=== PATIENT | female | born 1950 | race Caucasian/White ===

== ENCOUNTER → 2024-03-31 11:01 | Outpatient (REF) | payer MEDICARE, SELFPAY | LOC: WDC 11:01 | PROVIDERS: ATTENDING PHYSICIAN Family Medicine | DX: Z12.31 Encounter for screening mammogram for malignant neoplasm of breast (principal) | CPT/HCPCS: 77063; 77067 ==

== ENCOUNTER 2024-10-22 05:20 | Emergency (ER) | payer MEDICARE, SELFPAY ==
[2024-10-22 05:33] VITALS: BP 163/90
--- NOTE | 2024-10-22 05:58 | ED.GENMED ---
History of Present Illness
General
Chief Complaint: Musculo-Skeletal Complaint
Time Seen by Provider: 10/22/24 05:58
History of Present Illness
History of Present Illness:
PAST MEDICAL HISTORY AND REVIEW OF OLD RECORDS
- The patient has history of renal cancer, has been hyponatremic, and has high blood pressure. I reviewed records, the patient had a colonoscopy 2021.
Note:
CHIEF COMPLAINT(S)
Pain in the left leg.
HISTORY OF PRESENT ILLNESS
The patient is a 74-year-old female presenting with pain in her left leg. The pain is described as both sudden and severe in onset, occurring intermittently over the past few weeks. The patient reports that the pain extends all the way down to the
toes on the left side. There is no associated trauma or other symptoms in different areas. The patient denies any pain in the right leg. When the left leg is manipulated, she experiences discomfort. There is no history of taking narcotics, and the
patient does not express an immediate desire for narcotic pain relief. She reports that the severity of pain is occasionally significant. The patient takes several other medications including prednisone and methotrexate, but the exact reasons for
these are not specified. No blood-thinning medications were reported.
REVIEW OF SYSTEMS
- Musculoskeletal: Reports sudden and severe pain in the left leg extending to the toes; no history of trauma.
- Cardiovascular: Pulses are palpable in the leg; no indication of blood flow issue noted.
- Medication-related: Queries about severity needing narcotics, none taken or requested.
PHYSICAL EXAM
General: Alert, moderate distress noted related to pain in the left lower extremity
Skin: Warm, dry.
Head: Normocephalic, atraumatic.
Neck: Supple, trachea midline.
Eye, Ears, Nose, Mouth, and Throat: Oral mucosa moist.
Cardiovascular: Normal peripheral perfusion, No edema. She has bounding DP and PT pulses bilaterally. Regular rhythm.
Respiratory: Respirations are non-labored.
Gastrointestinal: Abdomen nondistended.
Back: Normal range of motion, Normal alignment.
Musculoskeletal: Somewhat decreased active range of motion of the left lower extremity due to pain, deformities noted to both toes, ulnar deviation noted at the fingers consistent with rheumatoid arthritis there may be some mild diffuse tenderness
to palpation of the left lower extremity
Neurological: Alert and oriented to person, place, time, and situation, No focal neurological deficit observed.
Psychiatric: Cooperative, appropriate mood & affect.
PLAN
The plan includes ordering blood work and x-rays to further investigate the cause of the left leg pain. Additionally, Toradol, a non-narcotic anti-inflammatory medication, is to be administered to manage pain.
DIFFERENTIAL DIAGNOSIS
The Differential Diagnosis includes, in no particular order and is not limited to:
1. Deep vein thrombosis
2. Peripheral arterial disease
3. Musculoskeletal strain
4. Neuropathy
5. Vasculitis
6. Arthritis
7. Lumbar radiculopathy
8. Compartment syndrome
9. Soft tissue infection
10. Bone pathology (e.g., fracture, tumor)
RADIOLOGY
- Ultrasound imaging shows no evidence of DVT
LABS
- White count, hemoglobin, CK, chemistries unremarkable
UPDATE
- The patient was given Toradol as well as IV fluids.
SUMMARY OF ENCOUNTER
The patient is a 74-year-old female who presented with sudden and severe left leg pain extending to the toes. Upon evaluation, x-rays of the knee indicated diminished joint space, suggesting possible osteoarthritis. Laboratory workup was performed,
and all labs, including inflammatory markers, white blood cell count, and creatine kinase, returned normal results, ruling out infection or significant inflammatory conditions. Physical examination did not support sciatica, with normal blood flow
observed in the affected leg. The patient has a history of kidney cancer and rheumatoid arthritis, for which she sees a sap business intelligence consultant. Emergency treatment included administration of ketorolac (Toradol) for pain management. Considering the patients
ongoing severe symptoms, a decision was made to prescribe tramadol (Ultram) for additional pain relief.
DISPOSITION
Discharge.
ASSESSMENT
Severe left leg pain, likely due to osteoarthritic changes noted in the knee joint.
EMERGENCY TREATMENTS ADMINISTERED
A dose of ketorolac (Toradol) was provided for pain management.
PLAN
The patient was referred to an software product specialist for further evaluation of knee joint issues. She was advised to try kbib-ufj-tilpvjl ibuprofen (Motrin) intermittently for additional anti-inflammatory effects. Additionally, a prescription for
tramadol (Ultram) was sent to her pharmacy for short-term pain management.
INDEPENDENT REVIEW OF LABS AND INTERPRETATION OF TESTS
- My independent review of lab results indicates normal inflammatory markers, white blood cell count, and creatine kinase levels, showing no signs of infection or pronounced rheumatoid arthritis activity.
- My independent interpretation of x-rays shows diminished joint space in the knee, indicative of osteoarthritic changes, but no signs of metastatic disease or other concerning pathology.
PATIENT EDUCATION AND COUNSELING
The patient was educated about the potential knee osteoarthritis and advised on possible non-prescription anti-inflammatory options like ibuprofen. The need for a follow-up with an software product specialist was discussed.
FOLLOW-UP INSTRUCTIONS
The patient was advised to follow up with an orthopedic doctor for further evaluation and management of knee joint issues.
MEDICATION RECONCILIATION
A prescription for tramadol (Ultram) was sent to the patient�s pharmacy for pain management. The patient was also advised to use anyg-lop-oicyrcu ibuprofen (Motrin) as needed.
MEDICAL DECISION MAKING
- Number and Complexity of Problems Addressed: Chronic conditions affecting care include rheumatoid arthritis and past kidney cancer. Differential diagnosis considered: osteoarthritis, musculoskeletal strain, neuropathy, lumbar radiculopathy, and
other causes of leg pain.
- Data:
- Category 1: My independent interpretation of the x-rays identified diminished joint space suggestive of osteoarthritis.
- Risk:
The decision to discharge was made, as imaging and lab work were reassuring, showing no acute life-threatening processes. The patients symptoms are manageable with prescribed medications, and she is considered reliable for follow-up.
DIAGNOSIS
- Osteoarthritis of knee, unspecified, M17.9
- Pain in left leg, M79.662
Past History
Past History
ED Past Medical History: Cancer and HTN
ED Past Surgical History: Gynecological and Urological
Social History
Tobacco: Non-smoker
Alcohol: None
Drug: None
Personal:
Living: with family
Phy Exam
Physical Exam
Physical Exam:
See HPI
Course
Orders/Labs/Results
Orders:
Orders
10/22/24 06:04
CR Femur - Left Min 2 Vw Urgent
Comment:
Reason For Exam: pain
CR Leg Tibia/fibula Left 2 Vw Urgent
Comment:
Reason For Exam: pain
US Legs, Left [US Periph Venous LOWER Ext LT] Urgent
Comment:
Reason For Exam: severe pain
10/22/24 06:06
Ketorolac [Toradol] 15 mg IV NOW STA
10/22/24 06:08
0.9% Sodium Chloride 1000 ml [Nss] 1,000 ml IV BOLUS
10/22/24 06:12
CRP [C-Reactive Protein] Urgent
Complete Blood Count/With Diff Urgent
Comprehensive Metabolic Panel Urgent
Total CK [Creatine Phosphokinase] Urgent
Abnormal Lab Results
10/22/24
06:12
RBC 4.14 L 10^6/uL
(4.20-5.40)
Hct 36.7 L %
(37.0-47.0)
MCHC 32.7 L g/dL
(33.0-37.0)
RDW 14.6 H %
(11.5-14.5)
Abs Immat Gran (auto) 0.1 H 10^3/uL
(0-0.05)
Immature Gran % 0.6 H %
(0-0.5)
Sodium 134 L mmol/L
(135-145)
BUN 18 H mg/dl
(7-17)
Creatinine 0.4 L mg/dL
(0.6-1.0)
10/22/24 06:12
10/22/24 06:12
Vital Signs
Initial and Last Documented VS:
Initial Vital Signs
Temp Pulse Resp BP Pulse Ox
36.4 C 114 24 163/90 94
10/22/24 05:10/22/24 05:10/22/24 05:10/22/24 05:10/22/24 05:33
Last Documented Vital Signs
Temp Pulse Resp BP Pulse Ox
36.4 C 114 24 163/90 94
10/22/24 05:10/22/24 05:10/22/24 05:10/22/24 05:10/22/24 06:00
*Pulse Oximetry
SaO2: 94
Oxygen Mode of Delivery: Room air
Patient hypoxic: no
*Critical Care Note
Total Time (30-74mins, 75-104mins- exclusive of procedures): Not Applicable
ED Attending Note
-
Portions of this chart may have been created with voice recognition software.� Occasional wrong word or��sound alike� substitutions may have occurred due to the inherent limitations of voice recognition software.
Discharge Plan
Departure
Patient Disposition: Home (Routine Discharge)
Date of Disposition: 10/22/24
Time of Disposition: 07:20
Patient with high blood pressure during this ER visit?: Yes
Discharge Problem:
Acute leg pain
Prescriptions:
New
tramadol 50 mg tablet
50 - 100 mg PO Q12H PRN (Reason: Pain) Qty: 14 0RF
Referrals:
Aston Ayala MD [Active, Orthopedics]
PRIVATE,PHYSICIAN [Active, Internal Medicine]
Activity Restrictions/Additional Instructions:
The cause of your symptoms is unclear. Your white blood cell count, hemoglobin, inflammatory marker, and CK level (muscle breakdown number) are all normal. The ultrasound shows no sign of blood clot. I could easily feel strong arterial flow into
your foot. You do have rather significant degenerative joint disease at the left knee. I recommend you follow-up in orthopedics as well such as Dr. Ayala. You could intermittently try frap-zyp-rdektsp Motrin (ibuprofen) as you seem to have some
improvement after Toradol today�these are both anti-inflammatory medicine (NSAIDs).
Interventions
Interventions:
*Risk Screen - Suicide Last Done: 10/22/24 05:27
*General Assessment Last Done: 10/22/24 05:27
*Neglect/Abuse Screening Last Done: 10/22/24 05:27
*ED- Fall Risk Assessment Last Done: 10/22/24 05:27
*ED COVID-19 Vaccine History Last Done: 10/22/24 05:27
ED-Musculoskeletal Assessment Last Done: 10/22/24 06:20
Discharge Date and Time
Print Language: CYMRO
[2024-10-22 06:11] VITALS: BMI 15.5
[2024-10-22] MEDS: NSS 1000 IV (06:17)
[2024-10-22] MEDS: TORADOL 15 MG IV (06:19)
--- NOTE | 2024-10-22 06:27 | EDRN ---
Pt reports sudden onset of pain L upper leg that radiates down to her toes yesterday afternoon. Pain started while 'I was just lying there.' No known injury. Unrelenting pain prompted this ED visit. Last tylenol around 6430-0294. No pain in R
leg.
[2024-10-22 06:29] LABS: Hematocrit 36.7 % (37.0-47.0); Hemoglobin 12.0 g/dL (12.0-16.0); Mean Corp Hgb Conc. 32.7 g/dL (33.0-37.0); Mean Corpuscular Volume 88.6 fL (81.0-99.0); Nucleated Red Blood Cells % 0 %; Platelet Count 382 10^3/uL (130-400); Red Cell Dist. Width 14.6 % (11.5-14.5)
[2024-10-22 06:41] LABS: ALT (SGPT) 12 U/L (0-35); AST (SGOT) 21 U/L (14-36); Albumin 4.3 g/dl (3.5-5.0); Alkaline Phosphatase 71 U/L (38-126); Blood Urea Nitrogen 18 mg/dl (7-17); Calcium 10.0 mg/dl (8.4-10.2); Carbon Dioxide 22 mmol/L (22-30); Chloride 106 mmol/L (98-107); Estimated Creatinine Clearance 55 ml/min; Glucose 97 mg/dl (70-99); Potassium 3.9 mmol/L (3.5-5.1); Sodium 134 mmol/L (135-145); Total Protein 6.7 g/dl (6.3-8.2); eGFR > 60.00
[2024-10-22 06:53] LABS: C-Reactive Protein < 5.00 mg/L (0.0-10.00)
[2024-10-22 08:03] VITALS: BP 154/97
== END 2024-10-22 08:11 | disposition home or self-care (01) ==
LOC: EMR 05:20
PROVIDERS: EMERGENCY PHYSICIAN Emergency Medicine; FAMILY PHYSICIAN Family Medicine
DX: M79.605 Pain in left leg (principal); I10 Essential (primary) hypertension; Z85.528 Personal history of other malignant neoplasm of kidney
CPT/HCPCS: 96374; 96361; 99284; 73552; 73590; 80053; 82550; 85025; 86140; 93971

== ENCOUNTER 2024-10-26 19:56 | Inpatient (IN) | payer MEDICARE, SELFPAY ==
[2024-10-26 15:36] VITALS: BP 141/81
[2024-10-26] MEDS: MORPHINE SULFATE 2 MG IV (17:23)
[2024-10-26 17:41] VITALS: BP 145/72
[2024-10-26 17:42] LABS: Hematocrit 33.4 % (37.0-47.0); Hemoglobin 11.6 g/dL (12.0-16.0); Mean Corp Hgb Conc. 34.7 g/dL (33.0-37.0); Mean Corpuscular Volume 84.3 fL (81.0-99.0); Nucleated Red Blood Cells % 0 %; Platelet Count 344 10^3/uL (130-400); Red Cell Dist. Width 14.5 % (11.5-14.5)
--- NOTE | 2024-10-26 17:58 | ED.GENMED ---
History of Present Illness
General
Chief Complaint: Extremity Pain (non-traumatic)
Source: patient
Exam Limitations: none
Time Seen by Provider: 10/26/24 16:39
Nursing documentation reviewed up to this point in time: agreed with
History of Present Illness
History of Present Illness:
see MDM
Past History
Past History
ED Past Medical History: Cancer and HTN
ED Past Surgical History: Gynecological and Urological
Social History
Tobacco: Non-smoker
Alcohol: None
Drug: None
Personal:
Living: with family
Review of Systems
Review of Systems
Allergies reviewed?: Yes
All Other Systems: Not applicable
Phy Exam
Physical Exam
Physical Exam:
GENERAL: Alert , in no apparent distress
EYE: pupils equal and reactive
NECK: Supple
ENT: o/p clr, mmm.
CARDIAC: Regular rate and rhythm .
LUNGS: Clear breath sounds bilaterally, no acute respiratory distress, no wheezes/rales/rhonchi
ABDOMEN: Soft, without focal tenderness, no r/g, no cvat, normal bowel sounds
NEUROLOGICAL: Alert and oriented, no focal neuro deficits
SKIN: Warm and dry, skin intact.
MUSCULOSKELETAL: No edema, well perfused. neg justino's sign
PSYCH: Normal and appropriate interaction.
Course
Orders/Labs/Results
Orders:
Orders
10/26/24 Breakfast
Regular
At Your Request: Limited Participation
Does patient need a safe tray?: No
Fluid Restriction: 1440 mL/day (48 oz)
10/26/24 17:12
Morphine Sulfate 2 mg IV NOW STA
10/26/24 17:23
CPK [Creatine Phosphokinase] Urgent
Complete Blood Count/With Diff Urgent
Comprehensive Metabolic Panel Urgent
Serum Osmolality Urgent
10/26/24 17:44
Osmolality, Random Urine Urgent
Date Specimen was Collected: 10/26/24
Time Specimen was Collected: 17:42
Comment: ADD ON
Urine Sodium Urgent
Date Specimen was Collected: 10/26/24
Time Specimen was Collected: 17:42
10/26/24 18:37
Add On- LAB Urgent
Tests Added?: urine osmo
10/26/24 19:00
Admit/Transfer Patient As Directed
Co-Sign Provider:
Level of Care: Inpatient admission
Assign to:: Telemetry
Physician / Group: Mahsa
Diagnosis: Hyponatremia
Reason for Telemetry: Arrhythmia
Date to Stop Telemetry: 10/29/24
Time to Stop Telemetry: 11:00
Reason for Hospitalization: hyponatremia
Expected length of stay greater than two midnights?: Yes
ELOS- Estimated Length of Stay in days: 3
I certify the patient meets the requirements for IP care: Yes
10/26/24 19:01
PRN Pain Medication Management As Directed
May give lesser potent ordered pain med per pt: Yes
preference::
Protocol:: Medication orders for pain may be administered in a
manner that supports deferring to patient preference
when the pt is:
- Requesting an ordered lesser potent pain medication.
Least to most potent pain medications are defined
as: acetaminophen < NSAID < tramadol < opioids
(morphine, oxycodone, hydromorphone).
- Requesting a lesser dose of the same medication IF
ORDERED.
- Requesting a less intrusive route of administration
if both routes are prescribed by the provider (PO <
IV).
10/26/24 19:03
Code Status As Directed
Resuscitation Status: Full Code
10/26/24 19:26
ECG [Electrocardiogram (*1)] Urgent
Reason for Study: Other
Other Reason for Exam: hyponatremia
Cardiology Consult: Unknown
10/26/24 19:27
EKG- Treatment ONCE
10/26/24 19:36
3% Sodium Chloride 250 ml [Sodium Chloride 3%] 250 ml IV ONCE
10/26/24 21:08
Acetaminophen [Tylenol] 650 mg PO Q4HPRN PRN
HYDROmorphone [Dilaudid] 0.25 mg IV Q3HPRN PRN
Ondansetron Injectable [Zofran] 4 mg IV Q6HPRN PRN
Oxycodone/Acetaminophen [Percocet 5/325] 1 tablet PO Q4HPRN PRN
10/26/24 21:08
NEPHROLOGY CONSULT Routine
Consulting Provider: Deb Shepherd
Was physician already notified: Yes
Activity As Directed
Activity Level: Out of Bed-Early Mobility
I&O [Intake/ Output] As Directed
Frequency: q12h
Vital Signs As Directed
Frequency: Per unit guidelines
Ot Eval And Treat Routine
Pt Eval And Treat Routine
Activity Level: Out of Bed-Early Mobility
DX Deep Vein Thrombosis Video Routine
10/26/24 23:30
Sodium Q4H
10/27/24 03:30
Sodium Q4H
10/27/24 06:00
Basic Metabolic Panel IN AM
Complete Blood Count/No Diff IN AM
Cortisol, Random IN AM
TSH Reflex To Free T4 IN AM
10/27/24 07:30
Sodium Q4H
10/27/24 08:00
FOLic ACID [Folvite] 1 mg PO DAILY
Olmesartan Medoxomil [Benicar] 20 mg PO DAILY
Prednisone [Deltasone] 10 mg PO Q48H
10/27/24 11:30
Sodium Q4H
10/27/24 18:00
Enoxaparin Sodium [Lovenox] 40 mg SC QPM
10/29/24 11:00
DC Protocol for Telemetry ONCE
Abnormal Lab Results
10/26/24
17:23
RBC 3.96 L 10^6/uL
(4.20-5.40)
Hgb 11.6 L g/dL
(12.0-16.0)
Hct 33.4 L %
(37.0-47.0)
Absolute Neuts (auto) 8.1 H 10^3/uL
(1.4-6.5)
Neutrophils % 81.9 H %
(42.2-75.2)
Lymphocytes % 11.6 L %
(20.5-51.1)
Sodium 121 L mmol/L
(135-145)
Chloride 92 L mmol/L
(98-107)
Creatinine 0.5 L mg/dL
(0.6-1.0)
Serum Osmolality 257 L mOsm/kg
(275-300)
10/26/24 17:23
10/26/24 17:23
Vital Signs
Initial and Last Documented VS:
Initial Vital Signs
Pulse Resp BP Pulse Ox
80 22 141/81 100
10/26/24 15:36 10/26/24 15:36 10/26/24 15:36 10/26/24 15:36
Last Documented Vital Signs
Temp Pulse Resp BP Pulse Ox
36.9 C 66 20 166/84 100
10/26/24 22:05 10/26/24 22:05 10/26/24 22:05 10/26/24 22:05 10/26/24 22:05
MDM/Problems Addressed
MDM/Problems Addressed:
Note:
CHIEF COMPLAINT(S)
- Right leg pain and vomiting.
HISTORY OF PRESENT ILLNESS
The patient is a 74-year-old female with a history of rheumatoid arthritis presenting with pain in the right leg. The pain begins at the top of the leg and radiates downward, affecting the entire leg. The patient describes it as severe, having never
been this intense before. This symptom started recently, with no clear chronic background, although the patient has experienced body pain related to rheumatoid arthritis in the past. Leg pain worsens with movement and walking.
The patient has been vomiting and has not eaten much today, with a little bit of intake around midday. This episode is similar to what occurred a few days ago when she was evaluated at [facility] for the same complaints. The leg pain was the
initial symptom, followed by weakness, dizziness, and nausea.
The patient�s sodium level was noted to be low at 127 mmol/L, which could contribute to her weakness and fatigue. A brain scan and neck tests were performed at [facility] and were reportedly unremarkable. The patient took Tramadol at [place], which provided some relief, but the dosage at home did not last long. She has since seen her family doctor.
PAST MEDICAL AND SURGICAL HISTORY
- Rheumatoid Arthritis
CHRONIC MEDICAL CONDITIONS SIGNIFICANTLY AFFECTING CARE
- Rheumatoid Arthritis
SOCIAL DETERMINANTS AFFECTING HEALTH
- The patient does not consume an excessive amount of water.
ALLERGIES
- The patient is allergic to several medications, including oxycodone and hydrocodone.
MEDICATIONS
- Prednisone (dose unspecified)
- Tramadol (12 PM dose today)
REVIEW OF SYSTEMS
- Musculoskeletal: Right leg pain, severe, worsened by movement.
- Gastrointestinal: Vomiting, reduced food intake today.
- Neurological: Weakness, dizziness.
PHYSICAL EXAM
Nursing notes reviewed and vital signs reviewed.
- Musculoskeletal: Pain affecting the entire right leg.
PROBLEM LIST
- Acute: Right leg pain, vomiting, low sodium levels.
- Chronic: Rheumatoid arthritis.
PLAN
The plan is to admit the patient to the hospital for further evaluation and management due to multiple recent visits for the same symptoms and the current presentation.
DIFFERENTIAL DIAGNOSIS
The Differential Diagnosis includes, in no particular order and is not limited to:
1. Deep vein thrombosis
2. Sciatica
3. Rheumatoid arthritis exacerbation
4. Electrolyte imbalance (secondary to renal insufficiency or other causes)
5. Peripheral neuropathy
6. Medication side effects (e.g., Prednisone)
7. Acute kidney injury
8. Neuropathic pain
9. Vascular insufficiency
10. Infection (e.g., cellulitis or osteomyelitis)
74 y/o F
h/o RA on meds
HTN
here with dizziness, n/v, severe LE pain
has been seen for this abuot 5 times in the past few days
once here 10/22, sodiumw as 132
then f/u at PCP then went to another ER yesterday and sodium 127
today went to PCP and was sent here
she is calling out in pain spontaneously
it is not with movement persay
no swelling or signficiatn chagnes, no skin changes/wounds
no fever/chills
she has ability to move her joitns
dose have joints c/w severe RA
? ra flare vs symptomatic hyponatremia
sodium 121
pt seems mildly confused
will admit
*Pulse Oximetry
SaO2: 98
Oxygen Mode of Delivery: Room air
Patient hypoxic: no (100)
*Critical Care Note
Total Time (30-74mins, 75-104mins- exclusive of procedures): Not Applicable
ED Attending Note
-
Portions of this chart may have been created with voice recognition software.� Occasional wrong word or��sound alike� substitutions may have occurred due to the inherent limitations of voice recognition software.
Discharge Plan
Departure
Patient Disposition: Admit
Date of Disposition: 10/26/24
Time of Disposition: 18:32
Admit to: Med/Surg
Presentation/result/management discussed w/ accepting MD/DO: Hospitalist
Condition: Fair
Covid-19: Not Applicable
Discharge Problem:
Hyponatremia, Acute leg pain
Interventions
Interventions:
*Risk Screen - Suicide Last Done: 10/26/24 21:36
*General Assessment Last Done: 10/26/24 19:14
*Neglect/Abuse Screening Last Done: 10/26/24 15:36
*ED- Fall Risk Assessment Last Done: 10/26/24 19:14
*ED COVID-19 Vaccine History Last Done: 10/26/24 21:36
*Nursing Disposition Last Done: 10/26/24 21:15
ED-Skin Assessment Last Done: 10/26/24 17:32
ED-Peripheral Vascular Assessment Last Done: 10/26/24 17:32
ED-Musculoskeletal Assessment Last Done: 10/26/24 19:14
Discharge Date and Time
Discharge Date/Time: 10/26/24 21:30
[2024-10-26 18:00] VITALS: BP 130/69
[2024-10-26 18:09] LABS: ALT (SGPT) 15 U/L (0-35); AST (SGOT) 24 U/L (14-36); Albumin 4.3 g/dl (3.5-5.0); Alkaline Phosphatase 63 U/L (38-126); Blood Urea Nitrogen 16 mg/dl (7-17); Calcium 10.1 mg/dl (8.4-10.2); Carbon Dioxide 23 mmol/L (22-30); Chloride 92 mmol/L (98-107); Glucose 82 mg/dl (70-99); Potassium 4.2 mmol/L (3.5-5.1); Sodium 121 mmol/L (135-145); Total Protein 6.4 g/dl (6.3-8.2); eGFR > 60.00
--- NOTE | 2024-10-26 19:08 | HPS.HSE ---
Family Physician
-
Family Physician: Cara Cope
Chief Complaint
-
Lower Extremity Pain, Dizziness and Low Sodium
History of Present Illness
Patient is a 74 y/o female past medical history of hypertension, and rheumatoid arthritis who presents with worsening lower extremity pain, dizziness and low sodium. Patient was initially seen here in the [facility] Emergency Department on
October 22 for worsening left lower extremity pain. At that time she had a peripheral vascular ultrasound that was negative for DVT and a femur/tib/fib x-ray that revealed only osteoarthritis. She was discharged with Tramadol for pain, and
instructed to take ibuprofen of which she only took one dose. Patient was then hospitalized at [facility] from Oct 24 to Oct 25 for the pain as well as low sodium. It appears her sodium level was 127 on Oct 24. She presents today with
persistent left lower extremity pain as well as worsening symptoms of nausea and dizziness. Blood work revealed sodium level has continued to trend downward to 121. Patient does not appear to be drinking an excess amount of fluid.
Medical History
Past Medical History
Past Medical History: Reports Other
Additional Past Medical History:
Essential Hypertension
Rheumatoid Arthritis
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
Past Surgical History: Reports Other
Additional Past Surgical History:
Partial Right Nephrectomy
Hysterectomy
Social History
Tobacco: Non-smoker
Alcohol: None
Family History
Family History: Not pertinent
Allergies / Home Medications
Allergies reflects when Allergies were last updated in [facility].
Home Medications with original date entered in [facility]
Allergy/Medication List:
Allergies
Allergy/AdvReac Type Severity Reaction Status Date / Time
abatacept (From Orencia) Allergy Unknown Verified 10/22/24 05:27
acetaminophen (From Percocet) Allergy nausea,vomi Verified 10/22/24 05:27
ting,diarrh
ea
adalimumab (From Humira) Allergy Unknown Verified 10/22/24 05:27
gabapentin Allergy nausea,vomi Verified 10/22/24 05:27
ting
hydrocodone (Hydrocodone) Allergy nausea,vomi Verified 10/22/24 05:27
ting
infliximab (From Remicade) Allergy hives,nause Verified 10/22/24 05:27
a
latex Allergy hands Verified 10/22/24 05:27
swell with
redness
oxycodone HCl (From Percocet) Allergy nausea,vomi Verified 10/22/24 05:27
ting,diarrh
ea
Penicillins Allergy Hives Verified 10/22/24 05:27
tapentadol HCl (From Nucynta) Allergy nausea,vomi Verified 10/22/24 05:27
ting
thiopental sodium (From Allergy Hives Verified 10/22/24 05:27
Pentothal)
Home Medications
folic acid 1 mg tablet 1 mg PO DAILY 10/26/24
methotrexate sodium 2.5 mg tablet 7.5 mg PO FR 10/26/24
olmesartan 20 mg tablet (Benicar) 20 mg PO DAILY 10/26/24
ondansetron 4 mg disintegrating tablet 4 mg PO Q6HPRN PRN nausea 10/26/24
prednisone 10 mg tablet 10 mg PO Q48H 10/26/24
tramadol 50 mg tablet 50 - 100 mg PO Q12H PRN moderate Pain 10/26/24
Review of Systems
-
A 12 point ROS was completed and negative except as noted: Yes
Constitutional: Denies Fever
Respiratory: Denies Cough or Trouble Breathing
Cardiac: Denies Chest Pain or Palpitations
Abdomen/GI: Reports Nausea
Physical Exam
Vital Signs
Vital Signs
Pulse Resp BP Pulse Ox
72 16 130/69 97
10/26/24 18:15 10/26/24 18:15 10/26/24 18:00 10/26/24 18:15
Physical Exam
General: Comfortable and Conversant
HEENT: Anicteric and Moist mucous membranes
Respiratory: Clear and Non Labored Respirations
Cardiac: S1/S2 and Regular Rhythm
GI: Soft and Non Tender
Rectal: Deferred by Provider
Musculoskeletal: No Clubbing, No Cyanosis, No Edema and Other (Range of motion of left lower extremity without increased in pain; Significant rheumatoid arthritis deformities)
Skin: Warm and Dry
Neuro: Awake, Alert, Oriented and Nonfocal/grossly intact
Psych: Calm
Laboratory Results
-
10/26/24 17:23
10/26/24 17:23
Laboratory Results
Total Bilirubin 0.9 mg/dl (0.2-1.3) 10/26/24 17:23
AST 24 U/L (14-36) 10/26/24 17:23
ALT 15 U/L (0-35) 10/26/24 17:23
Alkaline Phosphatase 63 U/L (38-126) 10/26/24 17:23
Data Reviewed
-
Lab Data: Labs Reviewed by me
Old Records: Reviewed
Impression/Plan
-
Acute Symptomatic Hyponatremia
-Consult Nephrology
-Start 3%NaCl at 20ml/hr for 250ml
-Monitor sodium every 4 hours - Goal Sodium for Tonight 126
-Start fluid restriction
Left Lower Extremity Pain, possibly related to arthritis
-Consult PT/OT
-Continue Tylenol for mild pain, Percocet for moderate pain and Dilaudid for severe pain
Essential Hypertension
-Continue olmesartan
Rheumatoid Arthritis
-Continue methotrexate and prednisone
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
DVT proph: Lovenox
Code Status: Full Code
[2024-10-26 19:14] VITALS: BMI 15.9
[2024-10-26 20:00] VITALS: BP 135/79
[2024-10-26] MEDS: SODIUM CHLORIDE 3% 250 IV (20:01)
--- NOTE | 2024-10-26 20:04 | W.PN.UPDATE ---
Update Note
Progress Note Update
This is an addendum to H&P written by Linda Luu on 10/26/2024. �Patient seen and examined independently with PA.
74-year-old female past medical history of hyponatremia, renal cell oncocytoma status post partial nephrectomy, rheumatoid arthritis, hypertension, presenting with nausea/vomiting, headache, dizziness, left lower extremity pain came to the ER on
10/22. Ultrasound negative for DVT. Femur and tib-fib x-ray showed osteoarthritis. Went to [place] ER on 10/24 found to be hyponatremic which primary detected and later sent to the ER today.
Vital signs normal.
Labs show sodium of 121 from 134 from 4 days prior. Urine sodium 69, urine osmolality 429.
Patient with symptomatic hyponatremia secondary to SIADH precipitated by leg pain. She has left lower extremity pain likely secondary to arthritis.
Nephrology recommends hypertonic saline. 48 ounce fluid restriction. Recheck BMP every 4 hours.
Pain control with Tylenol, oxycodone, Dilaudid.
[2024-10-26 22:05] VITALS: BP 166/84
[2024-10-26 22:06] VITALS: BMI 15.2
--- NOTE | 2024-10-26 22:42 | PTCARENOTE ---
Pt transferred to 4W. Pt able to stand and pivot unto bed with assist. Pt has b/l lower ext. weakness. Pt oriented to unit and room, safety measures in place, call carter within reach.
[2024-10-27] VITALS (8 sets, daily range): BP systolic 124–164; BP diastolic 74–99; PULSE 84–86; O2SAT 98–99; BMI 15.2
[2024-10-27] LABS: Sodium 124 mmol/L (135-145)
[2024-10-27] MEDS: ZOFRAN 4 MG IV (00:04)
[2024-10-27] MEDS: DILAUDID 0.25 MG IV ×2 (00:08→04:49)
[2024-10-27 04:14] LABS: Sodium 128 mmol/L (135-145)
[2024-10-27 08:13] LABS: Hematocrit 35.8 % (37.0-47.0); Hemoglobin 12.3 g/dL (12.0-16.0); Mean Corp Hgb Conc. 34.4 g/dL (33.0-37.0); Mean Corpuscular Volume 85.9 fL (81.0-99.0); Red Cell Dist. Width 14.5 % (11.5-14.5)
[2024-10-27 08:58] LABS: Cortisol, Random 27.6 ug/dl
[2024-10-27] MEDS: DELTASONE 10 MG PO (09:47)
[2024-10-27] MEDS: FOLVITE 1 MG PO (09:47)
[2024-10-27] MEDS: BENICAR 20 MG PO (09:47)
--- NOTE | 2024-10-27 10:28 | CM ---
Addendum entered by Donita Ramirez 10/27/24 10:34:
PCP: Dr Cara Cope
Original Note:
Met with Pt and spouse at bedside. IA completed. Lives in a 1 story home with 3 or 4 steps at side entrance. Uses side entrance because it has railings and special steps.No hx of VN, DM or SNF. Confirm PCP, Rx and insurance
Plan: Home with no needs
PCP: Dr. Self
RX: [facility] on [facility]
[2024-10-27 11:02] LABS: Blood Urea Nitrogen 13 mg/dl (7-17); Calcium 9.2 mg/dl (8.4-10.2); Carbon Dioxide 26 mmol/L (22-30); Chloride 96 mmol/L (98-107); Estimated Creatinine Clearance 52 ml/min; Glucose 172 mg/dl (70-99); Potassium 3.6 mmol/L (3.5-5.1); Sodium 128 mmol/L (135-145); eGFR > 60.00
--- NOTE | 2024-10-27 11:57 | W.CON.NEPH ---
Consultation
-
Date/Time Consultation Requested: 10/27/24 7 AM
Date/Time Consultation Performed: 10/27/24 11 AM
Requesting Provider: Dr. Bragg
Performing Provider: Dr. Whipple
Reason for Consultation: Hyponatremia
Medical History
-
Chief Complaint: Hyponatremia
History of Present Illness:
This is a 74-year-old female who has rheumatoid arthritis treated with methotrexate therapy which has been fairly stable overall.She is on chronic Pred she is on chronic prednisone therapy as well. She also has hypertension on a monotherapy regimen
which is controlled. She was admitted because of lower extremity pain. She had been in the ER on October 22 and was discharged on tramadol. She was then hospitalized at [facility] on October 24 and for the pain and was also found to have
hyponatremia. Level was 127 on October 24. She returns to [place] because of worsening lower extremity pain but now with development of nausea and vomiting and lightheadedness. Sodium at time of admission was 121. She received hypertonic saline
with modest improvement of sodium level.
Past Medical History
Essential Hypertension
Rheumatoid Arthritis
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
Partial Right Nephrectomy
Hysterectomy
Social History
Tobacco: Non-Smoker
Alcohol: None
Family History
Family History: Not Pertinent
Allergies / Home Medications
Allergy/AdvReac Type Severity Reaction Status Date / Time
abatacept (From Orencia) Allergy Unknown Verified 10/22/24 05:27
acetaminophen (From Percocet) Allergy nausea,vomi Verified 10/22/24 05:27
ting,diarrh
ea
adalimumab (From Humira) Allergy Unknown Verified 10/22/24 05:27
gabapentin Allergy nausea,vomi Verified 10/22/24 05:27
ting
hydrocodone (Hydrocodone) Allergy nausea,vomi Verified 10/22/24 05:27
ting
infliximab (From Remicade) Allergy hives,nause Verified 10/22/24 05:27
a
latex Allergy hands Verified 10/22/24 05:27
swell with
redness
oxycodone HCl (From Percocet) Allergy nausea,vomi Verified 10/22/24 05:27
ting,diarrh
ea
Penicillins Allergy Hives Verified 10/22/24 05:27
tapentadol HCl (From Nucynta) Allergy nausea,vomi Verified 10/22/24 05:27
ting
thiopental sodium (From Allergy Hives Verified 10/22/24 05:27
Pentothal)
�Medication �Instructions �Recorded �Confirmed �Type
folic acid 1 mg tablet 1 mg PO DAILY Supplement 10/26/24 10/26/24 History
methotrexate sodium 2.5 mg tablet 7.5 mg PO FR Anti-Inflammatory 10/26/24 10/26/24 History
olmesartan 20 mg tablet (Benicar) 20 mg PO DAILY Blood Pressure 10/26/24 10/26/24 History
ondansetron 4 mg disintegrating 4 mg PO Q6HPRN PRN nausea 10/26/24 10/26/24 History
tablet
prednisone 10 mg tablet 10 mg PO Q48H Anti-Inflammatory 10/26/24 10/26/24 History
tramadol 50 mg tablet 50 - 100 mg PO Q12H PRN moderate 10/26/24 10/26/24 History
Pain
Review of Systems
-
Nausea improved, pain improved. Had poor p.o. intake prior to hospitalization
All other systems: Negative unless noted
Physical Exam
Vital Signs
Vital Signs
Temp Pulse Resp BP Pulse Ox
97.9 F 79 16 142/77 97
10/27/24 11:17 10/27/24 11:17 10/27/24 11:17 10/27/24 11:17 10/27/24 11:17
Lab Results
WBC 6.2 10^3/uL (4.8-10.8) 10/27/24 07:48
RBC 4.17 10^6/uL (4.20-5.40) L 10/27/24 07:48
Hgb 12.3 g/dL (12.0-16.0) 10/27/24 07:48
Hct 35.8 % (37.0-47.0) L 10/27/24 07:48
Plt Count Not Reportable 10/27/24 07:48
Potassium 3.6 mmol/L (3.5-5.1) 10/27/24 10:26
Chloride 96 mmol/L (98-107) L 10/27/24 10:26
Carbon Dioxide 26 mmol/L (22-30) 10/27/24 10:26
BUN 13 mg/dl (7-17) 10/27/24 10:26
Creatinine 0.5 mg/dL (0.6-1.0) L 10/27/24 10:26
eGFR > 60.00 10/27/24 10:26
Glucose 172 mg/dl (70-99) H 10/27/24 10:26
Calcium 9.2 mg/dl (8.4-10.2) 10/27/24 10:26
Albumin 4.3 g/dl (3.5-5.0) 10/26/24 17:23
Laboratory Tests
10/22/24
06:12
Sodium 134 L
Physical Exam
Patient is awake alert oriented and in no distress. Mood and affect were pleasant, insight and judgment were good. Pupils are equal round and reactive to light, extraocular movements are intact, sclera were anicteric. Hearing was normal, ears and
nose are intact. Oropharynx was clear. Neck was supple with trachea midline and no thyromegaly. Heart was regular rate and rhythm without rubs. Lower extremities without edema. Lungs were clear to auscultation bilaterally and with normal
excursion. Abdomen was soft, nontender, with normal active bowel sounds, and no hepatosplenomegaly. Skin was without rash and with normal turgor.
Data Reviewed
-
Radiology: Report Reviewed by me (Leg x-ray mild osteoarthritis knee on 10/22/2024)
Ultrasound: Report Reviewed by me (Lower extremity ultrasound 10/22/2024 no DVT)
Medical Tests (Nuc Med, Echo etc): Image Personally Visualized and interpreted (EKG 10/26/2024 by my reading normal sinus rhythm)
Labs: Labs Reviewed by me
Old Records: Reviewed
Assessment/Plan
-
Assessment
Hyponatremia
Rheumatoid arthritis
Hypertension
Partial right nephrectomy
Left lower leg pain
Nausea
Plan
Likely excess ADH due to pain as well as poor intake resulting in hyponatremia
Pain and nausea has improved
Oral intake has improved
Low-dose Samsca today
next BMP tomorrow
Discussed with and
--- NOTE | 2024-10-27 13:26 | W.PN.HOSP.TC ---
Today's Communication/Plan
-
see note
Assessment / Plan
Assessment / Plan
Acute Symptomatic Hyponatremia
-baseline Na 133+
-Urine Na 69 and Uosm 429.
-Got 3%NaCl at 20ml/hr for 250ml
-Admission Na of 121, improved to 128 .
-Random cortisol of 27.6 TSH 1.7. Holding on doing an ACTH stim test as patient already on prednisone and there is no other supporting sign to suggest steroid deficiency
-Maintain on 40oz fluid restriction
Left Lower Extremity Pain, possibly related to arthritis
-Continue Tylenol for mild pain, Percocet for moderate pain and Dilaudid for severe pain
Essential Hypertension
-Continue olmesartan
Rheumatoid Arthritis
-Continue methotrexate and prednisone
-Provide dose of MTX 7.5mg today
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
DVT proph: Lovenox
Code Status: Full Code
Case discussed with nephrology
Total time spent ; 54 mins
Anticipated Discharge: Within 24 hours
Subjective/Interval History
-
Date of Service: October 27, 2024
sitting comfortably in chair
denies of having any issues
Objective Data
-
Labs:
Laboratory Results
10/27/24 10/27/24 10/27/24
03:40 07:48 07:48
WBC 6.2
Hgb 12.3
Hct 35.8 L
Plt Count Not Reportable
Sodium 128 L Cancelled Cancelled
Potassium Cancelled
Chloride Cancelled
Carbon Dioxide Cancelled
BUN Cancelled
Creatinine Cancelled
Glucose Cancelled
Calcium Cancelled
10/27/24 10/27/24
10:26 14:30
WBC
Hgb
Hct
Plt Count
Sodium 128 L Cancelled
Potassium 3.6
Chloride 96 L
Carbon Dioxide 26
BUN 13
Creatinine 0.5 L
Glucose 172 H
Calcium 9.2
Vital Signs:
Vital Signs
Temp Pulse Resp BP Pulse Ox
97.9 F 79 16 142/77 97
10/27/24 11:17 10/27/24 11:17 10/27/24 11:17 10/27/24 11:17 10/27/24 11:17
Review of Systems
-
Respiratory: Reports No Symptoms
Cardiac: Reports No Symptoms
Abdomen/GI: Reports No Symptoms
Physical Exam
-
General: No Apparent Distress and Comfortable
HEENT: Negative Oxygen
Respiratory: Clear to Auscultation
Cardiac: Regular Rhythm and S1/S2; Negative Murmur or Rub
GI: Soft and Nontender
Musculoskeletal: No Edema
Neuro: Awake, Alert, Oriented, No Motor Deficits and Nonfocal/Grossly Intact
Psych: Calm
[2024-10-27] MEDS: SAMSCA 7.5 MG PO (13:56)
[2024-10-27] MEDS: METHOTREXATE 7.5 MG PO (14:20)
--- NOTE | 2024-10-27 15:29 | PN.CDI ---
CDI
- -
CDI:
Physician Documentation Request
Admit Date: 10/26/24 19:56
Dear Doctor Bruno,
Please review the following and provide your response in the progress notes.
Clinical Indicators:
Cotton Roll Packer, 10/27
#Current BW: (10/26) 86 lbs 1 oz BMI: 15.2 (underweight). No recent weight history.
#...Based on AND and ASPEN criteria patient has moderate protein calorie malnutrition
#...of chronic disease due to a moderate loss of fat and muscle in the
#...area of her orbital and clavicle.
Based on the above information and your assessment, which of the following most accurately represents the patient's nutritional status?
Moderate protein calorie malnutrition of chronic disease
Other (please specify)
[place] Criteria ([facility] 2017)
2 or more criteria must be present for either
non severe or severe malnutrition
Note that the criteria differs related to the
presence of an acute or chronic illness
Chronic Illness
Energy Intake Non Severe: <75% for >1 month
Severe: <75% for >1 month
Weight Loss Non Severe: 5% over 1 month
7.5% over 3 months
10% over 6 months
20% over 1 year
Severe: >5% over 1 month
>7.5% over 3 months
>10% over 6 months
>20% over 1 year
Body Fat Non Severe: Mild Loss
Severe: Severe Loss
Muscle Mass Non Severe: Mild Loss
Severe: Severe Loss
Use of terms such as suspected, likely, concern for, or probable (associated with a specific diagnosis that is being evaluated, monitored, or treated as if it exists) are acceptable and can be coded in the inpatient setting, when documented at the
time of discharge.
Thank you,
Hilary Jara RN BSN CCDS
CDI Specialist
Please contact via tiger text
Please use your independent medical judgment in providing your response.
--- NOTE | 2024-10-27 15:35 | PN.CDI ---
CDI
- -
CDI:
Physician Documentation Request
Admit Date: 10/26/24 19:56
Dear Doctor Bruno,
Please review the following and provide your response in the progress notes.
Clinical Indicators:
Mahsa, PN, 10/26
#...symptomatic hyponatremia secondary to SIADH precipitated by leg pain. ...
Sole, consult, 10/27
#Hyponatremia
#...Likely excess ADH due to pain as well as poor intake resulting in hyponatremia
PN, 10/27
#Acute Symptomatic Hyponatremia
#...-baseline Na 133+
#...-Urine Na 69 and Uosm 429.
#...-Got 3%NaCl at 20ml/hr for 250ml
#...-Admission Na of 121, improved to 128 .
#-Random cortisol of 27.6 TSH 1.7. Holding on doing an ACTH stim test as
#...patient already on prednisone and there is no other supporting sign to
#...suggest steroid deficiency
#-Maintain on 40oz fluid restriction
Based on the above and your clinical assessment, please clarify in the progress notes, the appropriate diagnosis, if significant, that supports the above abnormalities and additional evaluation, monitoring and/or treatment rendered:
SIADH
Hyponatremia without SIADH
Other(please specify)
Use of terms such as suspected, likely, concern for, or probable (associated with a specific diagnosis that is being evaluated, monitored, or treated as if it exists) are acceptable and can be coded in the inpatient setting, when documented at the
time of discharge.
Thank you,
Hilary Jara RN BSN CCDS
CDI Specialist
Please contact via tiger text
Please use your independent medical judgment in providing your response.
[2024-10-27] MEDS: LOVENOX 40 MG SC (18:58)
[2024-10-28 03:00] VITALS: BP 151/91
[2024-10-28] MEDS: ZOFRAN 4 MG IV (03:15)
[2024-10-28 07:00] VITALS: BP 141/74
[2024-10-28 08:29] LABS: Hematocrit 37.0 % (37.0-47.0); Hemoglobin 12.6 g/dL (12.0-16.0); Mean Corp Hgb Conc. 34.1 g/dL (33.0-37.0); Mean Corpuscular Volume 88.5 fL (81.0-99.0); Platelet Count 401 10^3/uL (130-400); Red Cell Dist. Width 14.6 % (11.5-14.5)
[2024-10-28] MEDS: FOLVITE 1 MG PO (08:44)
[2024-10-28] MEDS: BENICAR 20 MG PO (08:44)
[2024-10-28 08:53] LABS: Blood Urea Nitrogen 19 mg/dl (7-17); Calcium 10.0 mg/dl (8.4-10.2); Carbon Dioxide 25 mmol/L (22-30); Chloride 104 mmol/L (98-107); Estimated Creatinine Clearance 52 ml/min; Glucose 90 mg/dl (70-99); Potassium 3.9 mmol/L (3.5-5.1); Sodium 135 mmol/L (135-145); eGFR > 60.00
--- NOTE | 2024-10-28 11:45 | W.PN.NEPH.PH ---
Today's Communication / Plan
-
dc
Assessment/Plan
-
Assessment
Hyponatremia
Rheumatoid arthritis
Hypertension
Partial right nephrectomy
Left lower leg pain
Nausea
Plan
Likely excess ADH due to pain as well as poor intake resulting in hyponatremia
now that pain is resolved and po intake good, no restrictions needed
BMP in 1-2 weeks
-
-
Date of Service: October 28, 2024
CC / HPI / ROS
-
Chief Complaint:
hyponatremia
History of Present Illness:
Na up to 135 after samsca
BP stable
nausea resolved, eating well
Review of Systems:
no CP/SOB
Labs
-
Labs:
WBC 8.5 10^3/uL (4.8-10.8) 10/28/24 07:05
RBC 4.18 10^6/uL (4.20-5.40) L 10/28/24 07:05
Hgb 12.6 g/dL (12.0-16.0) 10/28/24 07:05
Hct 37.0 % (37.0-47.0) 10/28/24 07:05
Plt Count 401 10^3/uL (130-400) H 10/28/24 07:05
Sodium 135 mmol/L (135-145) 10/28/24 07:05
Potassium 3.9 mmol/L (3.5-5.1) 10/28/24 07:05
Chloride 104 mmol/L (98-107) 10/28/24 07:05
Carbon Dioxide 25 mmol/L (22-30) 10/28/24 07:05
BUN 19 mg/dl (7-17) H 10/28/24 07:05
Creatinine 0.5 mg/dL (0.6-1.0) L 10/28/24 07:05
eGFR > 60.00 10/28/24 07:05
Glucose 90 mg/dl (70-99) 10/28/24 07:05
Calcium 10.0 mg/dl (8.4-10.2) 10/28/24 07:05
Albumin 4.3 g/dl (3.5-5.0) 10/26/24 17:23
Physical Exam
-
Vital Signs:
Vital Signs
Temp Pulse Resp BP Pulse Ox
97.6 F 72 16 141/74 98
10/28/24 07:00 10/28/24 07:00 10/28/24 07:00 10/28/24 07:00 10/28/24 07:00
Cardiovascular:: Regular rate and rhythm
Respiratory:: Bilateral: CTA
Lung Excursion:: Normal
Abdomen:: Nontender and Soft
Bowel Sounds:: Normal
Extremity Edema:: None: Bilateral:
--- NOTE | 2024-10-28 13:32 | W.PN.HOSP.TC ---
Addendum entered and electronically signed by Dustin Carr MD 10/28/24 14:10:
Add onto diagnosis list
Hyponatremia secondary to elevated ADH from pain
Moderate protein calorie malnutrition
Original Note:
Today's Communication/Plan
-
d/c home
Assessment / Plan
Assessment / Plan
Acute Symptomatic Hyponatremia - resolved
-baseline Na 133+
-Urine Na 69 and Uosm 429.
-Got 3%NaCl at 20ml/hr for 250ml, sodium came up to 128
-improved to 135 today after dose of Samsca
-Random cortisol of 27.6 TSH 1.7. Holding on doing an ACTH stim test as patient already on prednisone and there is no other supporting sign to suggest steroid deficiency
-Nephrology recommended against any need of fluid restriction
-Follow-up blood work prescription provided next week with patient to follow-up in primary care physician office
Left Lower Extremity Pain, possibly related to arthritis
-Continue Tylenol for mild pain, Percocet for moderate pain and Dilaudid for severe pain
Essential Hypertension
-Continue olmesartan
Rheumatoid Arthritis
-Continue methotrexate and prednisone
-Provide dose of MTX 7.5mg today
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
DVT proph: Lovenox
Code Status: Full Code
More than 30 minutes spent in discharge including
Final examination of the patient
Summarizing hospital stay
Instructions for continuing care to all relevant caregivers
Preparation of discharge records, prescriptions, and referral forms
Total time spent (in minutes): 39 mins
Anticipated Discharge: Today
Subjective/Interval History
-
Date of Service: October 28, 2024
No reported issues overnight
Objective Data
-
Labs:
Laboratory Results
10/28/24
07:05
WBC 8.5
Hgb 12.6
Hct 37.0
Plt Count 401 H
Sodium 135
Potassium 3.9
Chloride 104
Carbon Dioxide 25
BUN 19 H
Creatinine 0.5 L
Glucose 90
Calcium 10.0
Vital Signs:
Vital Signs
Temp Pulse Resp BP Pulse Ox
97.6 F 72 16 141/74 98
10/28/24 07:00 10/28/24 07:00 10/28/24 07:00 10/28/24 07:00 10/28/24 07:00
I&O
10/27/24 10/28/24 10/29/24
06:59 06:59 06:59
Intake Total 1380 / 1380
Balance 1380 / 1380
Review of Systems
-
Respiratory: Reports No Symptoms
Cardiac: Reports No Symptoms
Abdomen/GI: Reports No Symptoms
Physical Exam
-
General: Negative Appears in Distress
HEENT: Negative Oxygen
Neuro: Awake, Alert, Oriented and No Motor Deficits
--- NOTE | 2024-10-29 14:36 | W.DCSUMMARY ---
Discharge Summary
Discharge Data
Date of Admission: 10/26/24
Date of Discharge: 10/28/24
-
Pending Results: No
Hospital Course
Discharging Physician : Dr Dustin Carr
Disposition : Home
Primary care physician : Dr Cara Boston
Principal Discharge diagnosis :
Acute symptomatic Hyponatremia
Nausea/dizziness
Chronic Discharge diagnosis :
Essential Hypertension
Rheumatoid arthritis
History of renal cell oncocytoma status post partial right nephrectomy
Hospital Course :
Patient is a 80-year-old female with mentioned past medical history came to ER with new onset of nausea and dizziness. Patient has been dealing with some lower extremity pain and had two ER visits, was provided pain control medication. In ER
patient was noted to having acute hyponatremia with blood sodium of 121. Urine electrolytes suggestive of this being euvolemic in nature. Patient got 3% normal saline and nephrology was involved in care. Patient required a follow-up Samsca dose
with which patient sodium normalized. No medication to explain patient hyponatremia. At discharge patient was provided repeat prescription for BMP and plan for follow-up with PCP. Patient hyponatremia is likely from pain induced ADH excess.
Important imaging findings :
None
Procedure findings :
None
Discharge Plan
-
Patient Disposition: Home (Routine Discharge)
Discharge Diagnosis/Procedures: Acute hyponatremia
Condition: Fair
Diet: Restrict fluids to 48 oz
Activity: As tolerated
Driving Restrictions: As prior to admission
Blood Work: BMP in 1 week
Referrals:
Cara Cope MD [Family Provider, Family Practice] - in one week
Prescriptions:
Continued
prednisone 10 mg Tablet
10 mg PO Q48H
methotrexate sodium 2.5 mg Tablet
7.5 mg PO FR
folic acid 1 mg Tablet
1 mg PO DAILY
ondansetron 4 mg Tablet,Disintegrating
4 mg PO Q6HPRN PRN (Reason: nausea)
olmesartan [Benicar] 20 mg Tablet
20 mg PO DAILY
tramadol 50 mg tablet
50 - 100 mg PO Q12H PRN (Reason: moderate Pain)
Discharge Orders:
Discharge Patient (As Directed); Ordered 10/28/24
Ordered By: Dustin Carr
Discharge Date and Time
Discharge Date/Time: 10/28/24 11:48
Print Language: TURKISH
== END 2024-10-28 11:48 | disposition home or self-care (01) | DRG 641 ==
LOC: 4 WEST ACU 19:56
PROVIDERS: Physician Assistant; Physician Assistant Medical; ADMITTING PHYSICIAN Hospitalist; ATTENDING PHYSICIAN Hospitalist; EMERGENCY PHYSICIAN Emergency Medicine; FAMILY PHYSICIAN Family Medicine; OTHER PHYSICIAN Specialist
DX: E87.1 Hypo-osmolality and hyponatremia (principal); E44.0 Moderate protein-calorie malnutrition; Z68.1 Body mass index [BMI] 19.9 or less, adult; I10 Essential (primary) hypertension; M06.9 Rheumatoid arthritis, unspecified; M79.604 Pain in right leg; Z88.5 Allergy status to narcotic agent; Z88.0 Allergy status to penicillin; Z88.8 Allergy status to other drugs, medicaments and biological substances; Z88.6 Allergy status to analgesic agent; Z91.040 Latex allergy status; Z79.52 Long term (current) use of systemic steroids; Z79.631 Long term (current) use of antimetabolite agent; Z90.5 Acquired absence of kidney
CPT/HCPCS: 80048; 80053; 82533; 82550; 83930; 83935; 84295; 84300; 84443; 85025; 85027; 93005; 96361; 96374; 97162; 97167; 99284; J8610

== ENCOUNTER 2025-02-01 06:48 | Emergency (ER) | payer MEDICARE, SELFPAY ==
[2025-02-01 06:52] VITALS: BP 134/73
--- NOTE | 2025-02-01 07:21 | ED.GENMED ---
History of Present Illness
General
Chief Complaint: Abdominal Symptoms
Source: patient
Exam Limitations: none
Time Seen by Provider: 02/01/25 07:20
Nursing documentation reviewed up to this point in time: agreed with
History of Present Illness
History of Present Illness:
Patient is a 74-year-old female with past medical history of hyponatremia hypertension RA renal cell cancer status post right partial nephrectomy presents to the ER complaining of nausea over the past several days. She denies any vomiting but
feels like she wants to vomit. She also has had a cough. She denies any fevers or shortness of breath. Denies any abdominal pain. Denies any urinary frequency or urgency. She had some to chest discomfort with coughing. She reports previously
when she had nausea in the past she was found to be hyponatremic
Past History
Past History
ED Past Medical History: Cancer and HTN
ED Past Surgical History: Gynecological and Urological
Social History
Tobacco: Non-smoker
Alcohol: None
Drug: None
Personal:
Living: with family
Phy Exam
General Physical Exam
General Presentation: no apparent distress
General age: appears stated age
General Skin: warm and dry
General Habitus: elderly
General Mental: alert
General Hydration: appears well hydrated
Cardiovascular Exam
Cardiovascular Exam: regular rate/rhythm, no murmur and normal peripheral pulses
Pulmonary Exam
Pulmonary Exam: lungs clear and no respiratory distress
Neurological Exam
Neurological Exam: alert and oriented x3
Musculoskeletal Exam
Musculoskeletal Exam: full ROM
Skin Exam
Skin Exam: normal color and warm/dry
Psychiatric Exam
Psychiatric Exam: normal mood/affect
Course
Orders/Labs/Results
Orders:
Orders
02/01/25 07:25
Cardiac Monitoring- Treatment ONCE
IV Insert/Care/Rem.- Treatment PRN
02/01/25 07:26
Electrocardiogram (*1) Stat
Reason for Study: Abdominal Pain
EKG- Treatment ONCE
Ondansetron Injectable [Zofran] 4 mg IV NOW STA
02/01/25 07:43
Chest [CR Chest - 2 Views ] Urgent
Comment:
Reason For Exam: cough
02/01/25 07:46
0.9% Sodium Chloride 1000 ml [Nss] 1,000 ml IV BOLUS
02/01/25 07:50
COVID-19 Antigen Urgent
Source: Nasal Swab
Complete Blood Count/With Diff Urgent
Comprehensive Metabolic Panel Urgent
Lipase Urgent
Troponin I Urgent
Influenza A+B Rapid Molecular Urgent
SUSAN Source: Nasal Swab
Specimen Description:
02/01/25 08:24
Urinalysis Reflex To Culture Urgent
Date Specimen was Collected: 02/01/25
Time Specimen was Collected: 08:22
Urine Microscopic Reflex Cult Urgent
Abnormal Lab Results
02/01/25 02/01/25
07:50 08:24
WBC 11.7 H 10^3/uL
(4.8-10.8)
RBC 4.12 L 10^6/uL
(4.20-5.40)
MCHC 32.5 L g/dL
(33.0-37.0)
Plt Count 415 H 10^3/uL
(130-400)
Abs Immat Gran (auto) 0.1 H 10^3/uL
(0-0.05)
Absolute Neuts (auto) 9.1 H 10^3/uL
(1.4-6.5)
Immature Gran % 0.8 H %
(0-0.5)
Neutrophils % 78.2 H %
(42.2-75.2)
Lymphocytes % 14.4 L %
(20.5-51.1)
Sodium 133 L mmol/L
(135-145)
Creatinine 0.5 L mg/dL
(0.6-1.0)
Urine Ketones 3+ A
(Negative)
Ur Occult Blood Reflex 1+ A
(Negative)
Urine Albumin (Reflex) 1+ A
(Neg - Trace)
02/01/25 07:50
02/01/25 07:50
Vital Signs
Initial and Last Documented VS:
Initial Vital Signs
Temp Pulse Resp BP Pulse Ox
98.1 F 89 19 134/73 98
02/01/25 06:52 02/01/25 06:52 02/01/25 06:52 02/01/25 06:52 02/01/25 06:52
Last Documented Vital Signs
Temp Pulse Resp BP Pulse Ox
98.1 F 83 20 139/95 99
02/01/25 06:52 02/01/25 10:31 02/01/25 09:18 02/01/25 10:30 02/01/25 09:18
[employer]er consulted with Physician
[employer]er consulted with physician?: Yes
Name of Physician Consulted: Christina
MDM/Problems Addressed
Differential Diagnosis Includes:
not limited to: Viral syndrome, COVID, influenza, bronchitis, URI, pneumonia
MDM/Problems Addressed:
72 yr old female presents for nausea for the past several days. She has had a mild cough. She complained of very minimal chest pain only with coughing. She is no cardiac history. She presents to the ER well-appearing nontoxic Zofran and fluids
given which improved patient's symptoms. She is able to drink fluids here now feeling much better. Her white count is very minimally elevated possible viral syndrome. Electrolytes are unremarkable. Urinalysis negative for infection COVID flu are
negative chest x-ray negative. No acute findings on EKG. trop is neg Likely viral syndrome. Will DC with short course of Zofran. Case to ED physician
*Radiology
Radiology exam reviewed: radiology read reviewed
*Pulse Oximetry
SaO2: 98
Oxygen Mode of Delivery: Room air
Patient hypoxic: no
*EKG
Interpreted by ED Provider?: Yes
Heart Rate: 77
Rate: normal
Rhythm: sinus
Ischemia: no ischemia
*Critical Care Note
Total Time (30-74mins, 75-104mins- exclusive of procedures): Not Applicable
ED Attending Note
-
Portions of this chart may have been created with voice recognition software.� Occasional wrong word or��sound alike� substitutions may have occurred due to the inherent limitations of voice recognition software.
Discharge Plan
Departure
Patient Disposition: Home (Routine Discharge)
Date of Disposition: 02/01/25
Time of Disposition: 11:01
Patient with high blood pressure during this ER visit?: Yes
Condition: Fair
Covid-19: Not Applicable
Discharge Problem:
Nausea, Cough
Instructions: Nausea and Vomiting, Adult (DC), Cough in adults - ED (DC), BLOOD PRESSURE
Prescriptions:
New
ondansetron 4 mg tablet,disintegrating
4 mg PO Q8H PRN (Reason: nausea and vomiting) Qty: 10 0RF
No Action
prednisone 10 mg Tablet
10 mg PO Q48H
methotrexate sodium 2.5 mg Tablet
7.5 mg PO FR
folic acid 1 mg Tablet
1 mg PO DAILY
ondansetron 4 mg Tablet,Disintegrating
4 mg PO Q6HPRN PRN (Reason: nausea)
olmesartan [Benicar] 20 mg Tablet
20 mg PO DAILY
tramadol 50 mg tablet
50 - 100 mg PO Q12H PRN (Reason: moderate Pain)
Referrals:
UNKNOWN - PT DOES,NOT KNOW [Family Provider]
Activity Restrictions/Additional Instructions:
As discussed, perla was sent to your pharmacy , take as directed. stay well hydrated. Follow up with your PCP in the next several days for re-evaluation. REturn if any worsening of symtpoms.
Interventions
Interventions:
*Risk Screen - Suicide Last Done: 02/01/25 06:52
*General Assessment Last Done: 02/01/25 06:52
*Neglect/Abuse Screening Last Done: 02/01/25 06:52
*ED- Fall Risk Assessment Last Done: 02/01/25 07:30
*ED COVID-19 Vaccine History Last Done: 02/01/25 07:30
*ED Influenza Vaccine History Last Done: 02/01/25 07:30
NE-Cmgjxm-Ahyroqbjlk Assessment Last Done: 02/01/25 07:41
Discharge Date and Time
Print Language: THAI
[2025-02-01 07:24] VITALS: BP 139/79
[2025-02-01 07:27] VITALS: BMI 15.4
[2025-02-01] MEDS: NSS 1000 IV (07:51)
[2025-02-01] MEDS: ZOFRAN 4 MG IV (07:52)
[2025-02-01 08:00] VITALS: BP 148/85
[2025-02-01 08:19] LABS: Hematocrit 38.5 % (37.0-47.0); Hemoglobin 12.5 g/dL (12.0-16.0); Mean Corp Hgb Conc. 32.5 g/dL (33.0-37.0); Mean Corpuscular Volume 93.4 fL (81.0-99.0); Nucleated Red Blood Cells % 0 %; Platelet Count 415 10^3/uL (130-400); Red Cell Dist. Width 14.2 % (11.5-14.5)
[2025-02-01 08:25] LABS: ALT (SGPT) 15 U/L (0-35); AST (SGOT) 21 U/L (14-36); Albumin 4.1 g/dl (3.5-5.0); Alkaline Phosphatase 76 U/L (38-126); Blood Urea Nitrogen 13 mg/dl (7-17); Calcium 9.7 mg/dl (8.4-10.2); Carbon Dioxide 26 mmol/L (22-30); Chloride 100 mmol/L (98-107); Estimated Creatinine Clearance 54 ml/min; Glucose 96 mg/dl (70-99); Lipase 224 U/L (23-300); Potassium 4.1 mmol/L (3.5-5.1); Sodium 133 mmol/L (135-145); Total Protein 6.6 g/dl (6.3-8.2); eGFR > 60.00
[2025-02-01 08:27] LABS: COVID-19 Antigen Negative (Negative)
[2025-02-01 08:32] LABS: Troponin I 0.015 ng/ml
[2025-02-01 08:46] LABS: Urine Character Clear (Clear)
[2025-02-01 09:00] LABS: Urine Red Blood Cell 0-2 /HPF (0-2); Urine Urothelial Cell 0-2 /LPF (FEW); Urine White Cell 0-2 /HPF (0-5)
[2025-02-01 09:17] VITALS: BP 151/88
[2025-02-01 10:30] VITALS: BP 139/95
== END 2025-02-01 11:12 | disposition home or self-care (01) ==
LOC: EMR 06:48
PROVIDERS: Nurse Practitioner; EMERGENCY PHYSICIAN Emergency Medicine
DX: R11.0 Nausea (principal); R05.9 Cough, unspecified; R07.89 Other chest pain; I10 Essential (primary) hypertension; Z85.528 Personal history of other malignant neoplasm of kidney; Z11.52 Encounter for screening for COVID-19
CPT/HCPCS: 99285; 96374; 96361; 71046; 80053; 81003; 81015; 83690; 84484; 85025; 87502; 87811; 93005